=== PATIENT | female | born 1975 | race Caucasian/White ===

== ENCOUNTER 2016-06-01 05:38 | Emergency (ER) | payer BC ==
[2016-06-01 05:38] VITALS: BMI 24.1
[2016-06-01] MEDS ORDERED: HYDROmorphone 1 MG INJECTION IV ONE (06:04)
[2016-06-01] MEDS ORDERED: PROMETHAZINE 25 MG/ML VIAL IV ONE (06:04)
[2016-06-01] MEDS ORDERED: NS 1,000 ML IV ONE (06:04)
--- NOTE | 2016-06-01 06:06 | EDPRACDOC ---
- General Information Chief Complaint: Abdominal Pain Stated Complaint: ABD/BACK PAIN/N/V Time Seen by Provider: 06/01/16 05:48 Information Source: Patient Home Medications: Home Medications Ketoprofen 50 mg PO BID PRN #20 capsule 04/05/16 Ondansetron [Zofran Odt] 4 mg PO Q6H PRN #20 tab.rapdis 06/01/16 Oxycodone HCl/Acetaminophen [Percocet 5-325 mg Tablet] 1 each PO Q4 #20 tablet 06/01/16 Allergies/Adverse Reactions: Allergies Allergy/AdvReac Type Severity Reaction Status Date / Time morphine Allergy Headache Verified 04/05/16 09:01 - History of Present Illness Onset: yesterday HPI: PATIENT PRESENTS C/O EPIGASTRIC PAIN FOR DAYS. HX OF PANCREATITIS. DRINKING ETOH YESTERDAY. NO FEVER. MILD NAUSEA. NO VOMITING Pain Location: Reports: Epigastric Pain Context: Reports: Spontaneous Pain Severity: Moderate Pain Quality: Reports: Aching Pain Radiation: Reports: No Radiation Last Menstrual Period: hysterectomy : No Adult Abdominal History: Reports: Abdominal Surgery (FREDRICK) Female Abdominal History: Reports: Abdominal Surgery (HYSTERECTOMY) Modifying Factors: improves with: Nothing Female Associated Signs & Symptoms: Reports: Nausea ED Past Medical History - History Reviewed Yes Nurses notes reviewed and agree except as marked Travel Outside of [place] in the Last 3 Months?: No - Patient Medical History GI/ History: Reports: Gastroesophageal Reflux, Pancreatitis Psychological History: Reports: Anxiety. Denies: Depression, Substance Use Disorder Systemic History: Reports: Anemia Surgical History: Reports: Cholecystectomy, Hysterectomy - Family Medical History Reports: Hypertension (FATHER), Diabetes (GRANDFATHER), Cancer (FATHER, GRANDFATHER), Stroke (BROTHER). Denies: Cardiac Disorders - Social Medical History Smoking Status: Heavy tobacco smoker (5 or more cigarettes/day or daily pipe/ cigar) Social History: Denies: Barbiturate Use, Substance Use Disorder ETOH: Social Lives With: Family Lives In: Home EDM Review of Systems - Review of Systems ROS Negative Except as Marked: Yes All systems reviewed and were negative except as marked Constitutional: No Symptoms Reported. negative: Fever, Chills, Weakness, Fatigue, Loss of Appetite Eyes: No Symptoms Reported. negative: Redness, Blurred Vision, Double Vision, Discharge, Pain, Light Sensitive, Photophobia Ears: No Symptoms Reported. negative: Pain, Hearing Loss, Drainage, Ear Pulling Throat: No Symptoms Reported. negative: Pain, Swelling Nose: No Symptoms Reported. negative: Congestion, Bleeding, Discharge, Injection, Swelling, Deformity, Ecchymosis, Tender, Abrasion, Laceration Mouth: No Symptoms Reported. negative: Pain, Drooling Respiratory: No Symptoms Reported. negative: Cough, Brassy Cough, Barky Cough, Shortness of Breath, Wheezing, Hemoptysis Cardiovascular: No Symptoms Reported. negative: Chest Pain, Palpitations, Syncope, Edema, Orthopnea, PND, Skin Mottling, Cyanosis Gastrointestinal: Nausea, Pain. negative: Constipation, Diarrhea, Formula Intolerance, Melena, Vomiting Genitourinary: No Symptoms Reported. negative: Dysuria, Hematuria, Frequency, Discharge, Bleeding, Testicular Pain, Neurological: No Symptoms Reported. negative: Headache, Dizziness, Seizure, Numbness, Weakness, Speech Difficulty, Gait Difficulty Musculoskeletal: No Symptoms Reported. negative: Neck, Chestwall, Ribs, Back, Shoulder, Arm, Elbow, Forearm, Wrist, Hand, Pelvis, Hip, Femur, Knee, Leg, Ankle , Foot Integumentary: No Symptoms Reported. negative: Itching, Rash, Bruising, Wound Allergic/Immunologic: No Symptoms Reported. negative: Hives, Itching Hematologic: No Symptoms Reported. negative: Lymphadenopathy, Easy Bruising, Easy Bleeding Endocrine: No Symptoms Reported. negative: Weight Gain, Weight Loss Psychiatric: No Symptoms Reported. negative: Anxiety, Depression, Hallucinations, Insomnia, Suicidal - Physical Exam Constitutional: Alert (Awake), Distress (MILD) Oriented to: Time, Person, Place Last recorded Vital Signs: Last Vital Signs Temp 98.2 F 06/01/16 05:50 Pulse 82 06/01/16 06:50 Resp 20 06/01/16 06:50 BP 131/85 06/01/16 06:50 Pulse Ox 96 06/01/16 06:50 Oxygen Pulse Oxygen Saturation 96 O2 Device Room Air Oxygen Flow Rate Fraction of Inspired Oxygen ( FIO2) - HEENT Head: Normal ( normocephalic) Eye Exam: Normal (PERRL, EOMI, Sclera white) Oropharynx: Normal (Pharynx:Moist without exudate,Gums-no swelling) Tympanic Membrane: Normal ENT EAC: Normal TMJ: Normal Nose: No Symptoms Reported (septum midline) Neck: Normal (FROM, trachea at midline) - Respiratory/Cardiovascular Respiratory: Normal - CTA (BBS clear to auscultation without adventitious sounds ) Cardiovascular: Normal (RRR without murmur, gallop or rub) - GI Auscultation: Normal (NABS) Palpation: Normal (Soft,No rebound or guarding, non distended) Tenderness: Mild, Epigastric Robbins's Sign: Negative - Musculoskeletal Back: Normal (Non-Tender) Extremities: Normal (Normal tone, Pulses 2+ No cyanosis or edema, FROM) - Integumentary Skin: Normal, Warm, Dry Lymphatics: Normal (no adenopathy) - Neurologic Memory Impaired: Normal Motor Function: Normal (Normal tone, Pulses 2+ No cyanosis or edema, FROM) Cranial Nerve: Normal (CN II-X11 intact sensation, strength 5/5) Cerebellar: Normal Mood Description: Normal Perception: Normal - Results 06/01/16 06:23 06/01/16 06:23 WBC 13.6 xk/uL (3.8-10.8) H 06/01/16 06:23 RBC 4.29 xM/uL (4.20-5.40) 06/01/16 06:23 Hgb 13.7 g/dL (12.0-16.0) 06/01/16 06:23 Hct 40.6 % (36-47) 06/01/16 06:23 MCV 95 fL (81-99) 06/01/16 06:23 MCH 32.0 pg (27-32) 06/01/16 06:23 MCHC 33.8 g/dl (33-36) 06/01/16 06:23 RDW 13.1 % (11.5-14.5) 06/01/16 06:23 Plt Count 80 xk/uL (130-400) L 06/01/16 06:23 MPV 13.9 fL (7.4-10.4) H 06/01/16 06:23 Neut % (Auto) 53.8 % (45-76) 06/01/16 06:23 Lymph % (Auto) 34.0 % (17-44) 06/01/16 06:23 Twiggs % (Auto) 9.2 % (3-10) 06/01/16 06:23 Eos % (Auto) 2.4 % (0-5) 06/01/16 06:23 Baso % (Auto) 0.6 % (0-2) 06/01/16 06:23 Absolute Neuts (auto) 7.21 xk/uL (1.7-8.2) 06/01/16 06:23 Absolute Lymphs (auto) 4.62 xk/uL (0.65-4.75) 06/01/16 06:23 Sodium 139 mEq/L (137-146) 06/01/16 06:23 Potassium 3.4 mEq/L (3.5-5.1) L 06/01/16 06:23 Chloride 102 mEq/L (98-107) 06/01/16 06:23 Carbon Dioxide 28 mMOL/L (22-33) 06/01/16 06:23 Anion Gap 12 mEq/L (8-16) 06/01/16 06:23 BUN 11 MG/DL (7-17) 06/01/16 06:23 Creatinine 0.70 MG/DL (0.52-1.04) 06/01/16 06:23 Estimated GFR (MDRD) > 60 mL/min (>=60) 06/01/16 06:23 Glucose 95 MG/DL (70-99) 06/01/16 06:23 Calculated Osmolality 267 MOs/Kg (270-290) L 06/01/16 06:23 Calcium 9.4 MG/DL (8.4-10.2) 06/01/16 06:23 Total Bilirubin 0.5 MG/DL (0.2-1.3) 06/01/16 06:23 AST 28 IU/L (14-36) 06/01/16 06:23 ALT 32 IU/L (9-52) 06/01/16 06:23 Alkaline Phosphatase 76 IU/L (38-126) 06/01/16 06:23 Total Protein 7.3 G/DL (6.3-8.2) 06/01/16 06:23 Albumin 4.4 G/DL (3.5-5.0) 06/01/16 06:23 Lipase 2937 U/L (23-300) H 06/01/16 06:23 Urine Color Yellow 06/01/16 06:07 Urine Clarity Clear 06/01/16 06:07 Urine pH 6.0 (5.0-8.0) 06/01/16 06:07 Ur Specific [place] 1.015 (1.003-1.035) 06/01/16 06:07 Urine Protein Neg (NEG/TRACE) 06/01/16 06:07 Urine Glucose (UA) Neg (NEGATIVE) 06/01/16 06:07 Urine Ketones Neg (NEGATIVE) 06/01/16 06:07 Urine Occult Blood Neg (NEG/TRACE) 06/01/16 06:07 Urine Nitrite Neg (NEGATIVE) 06/01/16 06:07 Urine Bilirubin Neg (NEGATIVE) 06/01/16 06:07 Urine Urobilinogen <2.0 MG/DL (0-1) 06/01/16 06:07 Ur Leukocyte Esterase Neg (NEGATIVE) 06/01/16 06:07 Urine RBC 0-2 (0-5) 06/01/16 06:07 Urine WBC 0-2 (0-5) 06/01/16 06:07 Ur Epithelial Cells Occ 06/01/16 06:07 Urine Bacteria Few (NEG/FEW) 06/01/16 06:07 Urine Mucus Occ (NEG/OCC) 06/01/16 06:07 Lab Results 06/01/16 06/01/16 06/01/16 06:23 06:23 06:07 WBC 13.6 H RBC 4.29 Hgb 13.7 Hct 40.6 MCV 95 MCH 32.0 MCHC 33.8 RDW 13.1 Plt Count 80 L MPV 13.9 H Neut % (Auto) 53.8 Lymph % (Auto) 34.0 Twiggs % (Auto) 9.2 Eos % (Auto) 2.4 Baso % (Auto) 0.6 Absolute Neuts (auto) 7.21 Absolute Lymphs (auto) 4.62 Sodium 139 Potassium 3.4 L Chloride 102 Carbon Dioxide 28 Anion Gap 12 BUN 11 Creatinine 0.70 Estimated GFR (MDRD) > 60 Glucose 95 Calculated Osmolality 267 L Calcium 9.4 Total Bilirubin 0.5 AST 28 ALT 32 Alkaline Phosphatase 76 Total Protein 7.3 Albumin 4.4 Lipase 2937 H Urine Color Yellow Urine Clarity Clear Urine pH 6.0 Ur Specific [place] 1.015 Urine Protein Neg Urine Glucose (UA) Neg Urine Ketones Neg Urine Occult Blood Neg Urine Nitrite Neg Urine Bilirubin Neg Urine Urobilinogen <2.0 Ur Leukocyte Esterase Neg Urine RBC 0-2 Urine WBC 0-2 Ur Epithelial Cells Occ Urine Bacteria Few Urine Mucus Occ - Departure Yes I personally saw and evaluated the patient. Disposition: Home Condition: Good Final Diagnosis: Abdominal pain Pancreatitis Qualifiers: Chronicity: acute Pancreatitis type: alcohol induced Acute pancreatitis complication: unspecified Qualified Code(s): K85.20 - Alcohol induced acute pancreatitis without necrosis or infection Instructions: Acute Abdominal Pain (ED), Pancreatitis (ED) Education/Counseling Given To: Patient Education/Counseling Given Regarding: Diagnosis, Treatment, Prognosis, Follow Up Referrals: None,No Provider [Primary Care Provider] - One Week Portillo Tan MD [Staff Physician] - One Week Prescriptions: Ondansetron [Zofran Odt] 4 mg PO Q6H PRN #20 tab.rapdis PRN Reason: Nausea/Vomiting Oxycodone HCl/Acetaminophen [Percocet 5-325 mg Tablet] 1 each PO Q4 #20 tablet Additional Instructions: no etoh
[2016-06-01 06:31] LABS: AUTOMATED BASOPHIL 0.6 % (0-2); AUTOMATED EOSINOPHIL 2.4 % (0-5); AUTOMATED MONOCYTE 9.2 % (3-10); AUTOMATED NEUTROPHIL 53.8 % (45-76); MPV 13.9 fL (7.4-10.4)
[2016-06-01 06:34] LABS: LEUKOCYTES/URINE NEG (NEGATIVE); NITRITE/URINE NEG (NEGATIVE); RBC/URINE 0-2 (0-5); URINE OCCULT BLOOD NEG (NEG/TRACE); WBC/URINE 0-2 (0-5)
[2016-06-01 06:45] LABS: BLOOD UREA NITROGEN 11 MG/DL (7-17); CALCIUM 9.4 MG/DL (8.4-10.2); CALCULATED OSMOLALITY 267 MOs/Kg (270-290); CHLORIDE 102 mEq/L (98-107); GLUCOSE 95 MG/DL (70-99); SODIUM LEVEL 139 mEq/L (137-146); TOTAL PROTEIN 7.3 G/DL (6.3-8.2)
[2016-06-01] MEDS ORDERED: Pharmacy Review for Metformin - IV Contrast Given SCH (07:00)
[2016-06-01 07:39] VITALS: BP 133/66; PULSE 78; TEMP 98.4
== END 2016-06-01 07:37 | disposition home or self-care (01) ==
LOC: ED 05:38
DX: K85.20 Alcohol induced acute pancreatitis without necrosis or infection (principal); R10.9 Unspecified abdominal pain
CPT/HCPCS: 36415; 80053; 81001; 83615; 83690; 85025; 96374; 96375; 99283; J1170; J2550